=== PATIENT | female | born 1980 | race Caucasian/White ===

== ENCOUNTER 2017-07-05 07:49 | Outpatient (CLI) | payer BC | END 2017-07-05 07:50 | disposition home or self-care (01) | LOC: BICULT 07:49 | PROVIDERS: ATTEND Physician Assistant | DX: N92.0 Excessive and frequent menstruation with regular cycle (principal) | CPT/HCPCS: 76856 ==

== ENCOUNTER 2024-04-09 14:30 | Emergency (ER) | payer BC, SELFPAY ==
[2024-04-09] MEDS ORDERED: methylPREDNISolone Sod Succ/PF 125 MG/2 ML VIAL ONE (15:32)
== END 2024-04-09 15:45 | disposition home or self-care (01) ==
LOC: ERS 14:30
DX: J10.83 Influenza due to other identified influenza virus with otitis media (principal); H66.91 Otitis media, unspecified, right ear
CPT/HCPCS: 71046; 87081; 87428; 87430; 96372; J2919

== ENCOUNTER 2024-10-07 14:22 | Emergency (ER) | payer SELFPAY ==
[2024-10-07] MEDS ORDERED: Ketorolac Tromethamine 30 MG (1 mL) VIAL ONE (19:51)
== END 2024-10-07 19:55 | disposition home or self-care (01) ==
LOC: ERS 14:22
DX: M79.604 Pain in right leg (principal)
CPT/HCPCS: 96372; J1885